=== PATIENT | female | born 1970 | race Caucasian/White ===

== ENCOUNTER 2016-11-29 11:35 | Emergency (ER) | payer OTHER ==
[~2016-11-29] VITALS: Ht 170.2 cm; Wt 61.2 kg
[2016-11-29 11:35] VITALS: BP 136/73
== END 2016-11-29 12:01 | disposition home or self-care (01) ==
LOC: ER 11:39
DX: T22.112A Burn of first degree of left forearm, initial encounter (principal); F17.200 Nicotine dependence, unspecified, uncomplicated; X10.0XXA Contact with hot drinks, initial encounter; Y93.89 Activity, other specified; Y92.89 Other specified places as the place of occurrence of the external cause; Y99.9 Unspecified external cause status
CPT/HCPCS: 99283; A4606; Z7610

== ENCOUNTER 2017-03-15 17:10 | Emergency (ER) | payer OTHER ==
[~2017-03-15] VITALS: Ht 170.2 cm; Wt 70.3 kg
[2017-03-15 17:15] VITALS: BP 122/63
--- NOTE | 2017-03-15 18:02 | NUR ---
SELF PRESENTS TO ED: HEADACHE, R SIDE x 2 WEEKS. VSS
== END 2017-03-15 18:31 | disposition home or self-care (01) ==
LOC: ER 17:12
DX: G44.209 Tension-type headache, unspecified, not intractable (principal); R25.2 Cramp and spasm; F17.200 Nicotine dependence, unspecified, uncomplicated
CPT/HCPCS: 99283; A4606; Z7610

== ENCOUNTER 2023-02-26 17:26 | Emergency (ER) | payer OTHER ==
[~2023-02-26] VITALS: Ht 170.2 cm; Wt 64.0 kg
[2023-02-26 17:59] VITALS: BP 134/77; TEMP 98.7
[2023-02-26] MEDS ORDERED: CEPH500C2 PO (18:13)
[2023-02-26 18:24] VITALS: O2SAT 100
== END 2023-02-26 18:24 | disposition home or self-care (01) ==
LOC: ER 17:29
DX: L60.0 Ingrowing nail (principal)